=== PATIENT | female | born 1980 | race Caucasian/White ===

== ENCOUNTER 2022-07-06 10:39 | Emergency (ER) | payer BC ==
[2022-07-06] MEDS ORDERED: IBUPROFEN 400 MG TABLET (FP) PO ONE ×2 (10:56→11:49)
[2022-07-06 11:03] VITALS: BP 110/75; PULSE 123; RESP 18; TEMP 98; BMI 31.5
== END 2022-07-06 12:32 | disposition home or self-care (01) ==
LOC: FER 10:39
DX: S09.90XA Unspecified injury of head, initial encounter (principal); M25.511 Pain in right shoulder; M25.561 Pain in right knee; M54.2 Cervicalgia; W10.8XXA Fall (on) (from) other stairs and steps, initial encounter
CPT/HCPCS: 71046-TC-FY; 72125-TC; 73030-TC-RT-FY; 73564-TC-RT-FY; 81025; 99285-25